=== PATIENT | male | born 1980 | race Two or more races ===

== ENCOUNTER 2022-12-19 21:01 | Emergency (ER) | payer SELFPAY ==
[~2022-12-19] VITALS: Ht 177.8 cm; Wt 88.5 kg
[2022-12-19 21:04] VITALS: BP 121/70; TEMP 98.6; O2SAT 98
--- NOTE | 2022-12-19 21:04 | NUR ---
[id number] FROM HOME C/O LOWER BACK PAIN RAD TO KYM LEGS PER PT HEARD POP WHILE WAKLING DOG
[2022-12-19] MEDS ORDERED: HYDROMORPHONE 1 MG/1 ML DISP.SYRIN ONE (21:30)
[2022-12-19] MEDS ORDERED: HYDROMORPHONE 1 MG/1 ML DISP.SYRIN IM ONE (21:30)
[2022-12-19] MEDS ORDERED: ONDANSETRON 4 MG TAB.RAPDIS SL ONE (21:30)
[2022-12-19] MEDS ORDERED: ONDANSETRON 4 MG TAB.RAPDIS ONE (21:31)
[2022-12-19] MEDS ORDERED: ONDA4TAB5 PO (22:14)
[2022-12-19] MEDS ORDERED: HYDR-3980 PO (22:14)
[2022-12-19] MEDS ORDERED: CYCL10TA9 PO (22:14)
--- NOTE | 2022-12-19 22:22 | NUR ---
Patient discharged to home in stable condition. RX Written and verbal after care instructions given. Patient verbalizes understanding of instruction.
== END 2022-12-19 22:28 | disposition home or self-care (01) ==
LOC: ER 21:05
DX: M54.42 Lumbago with sciatica, left side (principal); M54.41 Lumbago with sciatica, right side; Z60.2 Problems related to living alone; Z79.899 Other long term (current) drug therapy
CPT/HCPCS: 99283; 96372; Q0162; J1170